=== PATIENT | female | born 1975 | race African-American/Black ===

== ENCOUNTER 2017-01-08 10:06 | Emergency (ER) | payer OTHER ==
[~2017-01-08] VITALS: Ht 152.4 cm; Wt 65.0 kg
[2017-01-08 10:08] VITALS: BP 137/76; PULSE 72; RESP 16; TEMP 97.8; O2SAT 100
[2017-01-08 11:04] LABS: BASOPHIL % 1.2 % (0.0-2.0); EOSINOPHIL # 0.1 TH/MM3 (0-0.4); EOSINOPHIL % 2.6 % (0.0-4.0); HEMATOCRIT 23.7 % (35.0-46.0); LYMPH % 29.8 % (9.0-44.0); MEAN CELL VOLUME 68.4 FL (80.0-100.0); MEAN CORPUSCULAR HEMOGLOBIN 21.4 PG (27.0-34.0); MEAN CORPUSCULAR HGB CONC 31.3 % (32.0-36.0); MONO % 7.4 % (0.0-8.0); PLATELET COUNT 310 TH/MM3 (150-450); RED BLOOD COUNT 3.47 MIL/MM3 (4.00-5.30); RED CELL DISTRIBUTION WIDTH 23.6 % (11.6-17.2); WHITE BLOOD COUNT 3.3 TH/MM3 (4.0-11.0)
[2017-01-08 11:05] LABS: HEMO FLAGS AUTO DIFF
[2017-01-08 11:21] LABS: ALT (GPT) 21 U/L (10-53); ANION GAP 7 MEQ/L (5-15); AST (GOT) 19 U/L (15-37); BICARBONATE 24.4 MEQ/L (21.0-32.0); BLOOD UREA NITROGEN 10 MG/DL (7-18); CHLORIDE 109 MEQ/L (98-107); GLOMERULAR FILTRATION RATE 93 ML/MIN (>89); SODIUM (NA) 140 MEQ/L (136-145)
[2017-01-08 11:23] LABS: ALKALINE PHOSPHATASE 68 U/L (45-117); TOTAL BILIRUBIN ADULT 0.2 MG/DL (0.2-1.0)
[2017-01-08 12:03] LABS: OVALOCYTES 2+ (NORMAL)
[2017-01-08 12:04] LABS: ACANTHOCYTES OCC (NORMAL); KERATOCYTES OCC (NORMAL); SCAN/DIFF AUTO DIFF CONFIRMED; TEARDROP RBCS 1+ (NORMAL)
--- NOTE | 2017-01-08 12:12 | PD ---
HPI Chief Complaint: Dizziness Time Seen by Provider: 12:11 Travel History International Travel<30 days: No Contact w/Intl Traveler<30days: No Traveled to known affect area: No History of Present Illness HPI 41-year-old female with history of anemia and hypertension presents to emergency department for evaluation of an episode of dizziness where the room was spinning. Patient states that this has happened before and she was told to take iron. She states she was at work this morning and it began to happen. She states she took a break but when returning to work it continued. Denies any headache. No focal deficits or weakness. No recent illnesses, fever, or chills. Patient denies any chest pain or tightness. No headaches. She is currently not having any symptoms. She has no other symptoms reported this time. [facility] Past Medical History Anemia: Yes Cardiovascular Problems: Yes (HTN) Diabetes: No Diminished Hearing: No Hypertension: Yes Immunizations Current: No ?: Not LMP: 12/04/16 : 2 Para: 1 : 1 Social History Alcohol Use: Yes Tobacco Use: No Substance Use: No Allergies-Medications (Allergen,Severity, Reaction): Coded Allergies: No Known Allergies (Verified , 01/08/17) Reported Meds & Prescriptions Reported Meds & Active Scripts Active No Active Prescriptions or Reported Medications Review of Systems Except as stated in HPI: all other systems reviewed are Neg Physical Exam Narrative GENERAL: Well-nourished female patient, ambulatory with a nonantalgic gait, no acute distress SKIN: Focused skin assessment warm/dry. HEAD: Atraumatic. Normocephalic. EYES: Pupils equal and round. No scleral icterus. No injection or drainage. ENT: No nasal bleeding or discharge. Mucous membranes pink and moist. NECK: Trachea midline. No JVD. CARDIOVASCULAR: Regular rate and rhythm. No murmur appreciated. RESPIRATORY: No accessory muscle use. Clear to auscultation. Breath sounds equal bilaterally. GASTROINTESTINAL: Abdomen soft, non-tender, nondistended. Hepatic and splenic margins not palpable. MUSCULOSKELETAL: No obvious deformities. No clubbing. No cyanosis. No edema. NEUROLOGICAL: Awake and alert. No obvious cranial nerve deficits. Motor grossly within normal limits. Normal speech. PSYCHIATRIC: Appropriate mood and affect; insight and judgment normal. Data Data Last Documented VS Orders Electrocardiogram (01/08/17 10:18) Complete Blood Count With Diff (01/08/17 10:18) Comprehensive Metabolic Panel (01/08/17 10:18) Ed Urine Pregnancytest Poc (01/08/17 10:18) Orthostatic Blood Pressure (01/08/17 12:23) Labs [facility] Medical Decision Making Medical Screen Exam Complete: Yes Emergency Medical Condition: Yes Medical Record Reviewed: Yes Differential Diagnosis Vertigo versus electro-lyte abnormalities versus symptomatic anemia Narrative Course 41 year-old female presents to emergency department for evaluation. Patient appears without distress. Her vital signs are stable. She is ambulatory with a nonantalgic gait. She is currently not having any symptoms. Patient defers rectal exam and states that she is not having black tarry stools or sami red blood. She states that she has had these symptoms in the past and was told to take iron. 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 CBC is with hemoglobin of 7.4. It is stable with lab work one year ago. CMP is without acute concern. I discussed the patient with my attending physician who agrees at this time that with lab work similar to one year ago this is a chronic condition and the patient needs an outpatient workup for her anemia, its cause, and treatment. Patient will be discharged home. She is advised to return immediately with any acute worsening of symptoms. Diagnosis Primary Impression: Dizziness, nonspecific Additional Impression: Anemia, chronic disease Referrals: Deya Nagel MD Primary Care Physician Patient Instructions: Dizziness (ED), General Instructions Additional Instructions: Follow-up with a primary care provider Seek hematology/oncology evaluation for further evaluation of your anemia Return immediately to the emergency department with any acute worsening of symptoms Med/Other Pt SpecificInfo: No Change to Meds Scripts No Active Prescriptions or Reported Meds Disposition: 01 DISCHARGE HOME Condition: Stable Johana Ojeda ALDA Jan 08, 2017 12:12 Anion Gap 7 MEQ/L Blood Urea Nitrogen 10 MG/DL Creatinine 0.83 MG/DL Estimat Glomerular Filtration 93 ML/MIN Rate Random Glucose 92 MG/DL Calcium Level 8.5 MG/DL Total Bilirubin 0.2 MG/DL Aspartate Amino Transf 19 U/L (AST/SGOT) Alanine Aminotransferase 21 U/L (ALT/SGPT) Alkaline Phosphatase 68 U/L Total Protein 7.4 GM/DL Albumin 3.7 GM/DL [facility] Diagnosis Primary Impression: Dizziness, nonspecific Additional Impression: Anemia, chronic disease Referrals: Deya Nagel MD Primary Care Physician Patient Instructions: Dizziness (ED), General Instructions Additional Instructions: Follow-up with a primary care provider Seek hematology/oncology evaluation for further evaluation of your anemia Return immediately to the emergency department with any acute worsening of symptoms Med/Other Pt SpecificInfo: No Change to Meds Scripts No Active Prescriptions or Reported Meds Disposition: 01 DISCHARGE HOME Condition: Stable Johana Ojeda Jan 08, 2017 12:12
[2017-01-08 12:33] VITALS: BP 120/77; TEMP 98
--- NOTE | 2017-01-08 20:20 | EKG ---
Date Performed: 01/08/2017 Time Performed: 10:32:38 PTAGE: 41 years EKG: Sinus rhythm NORMAL ECG PREVIOUS TRACING : 11/01/2015 11.54 Compared to prior tracing no significant change DOCTOR: Sb Hanna Interpretating Date/Time 01/08/2017 20:20:20
== END 2017-01-08 12:33 | disposition home or self-care (01) ==
LOC: NEPD 10:06
DX: R42 Dizziness and giddiness (principal); D64.9 Anemia, unspecified
CPT/HCPCS: 80053; 84703; 85025; 93005